=== PATIENT | male | born 1945 ===

== ENCOUNTER 2023-07-16 07:10 | Emergency (ER) | payer OTHER, MEDICARE ==
[~2023-07-16] VITALS: Ht 193 cm; Wt 127.0 kg
[~2023-07-16 07:10] MED LIST: ESOM20 PO; FINA5 PO; FURO20 PO; GLUC500 PO; METO50ER PO; MULVITMIND PO; Micro-K10 MEQ; SILD50TA PO; SUMA25 SL; TRAM50; XARELTO20 MG PO; ZOLP5 PO
[2023-07-16 08:02] LABS: BASOPHILS ABSOLUTE AUTO 0.04 K/mm3 (0.00-0.23); BASOPHILS PERCENT AUTO 1 % (0-2); EOSINOPHILS ABSOLUTE AUTO 0.17 K/mm3 (0.00-0.68); EOSINOPHILS PERCENT AUTO 2 % (0-6); Hematocrit 37.2 % (37.0-53.0); Hemoglobin 12.6 g/dL (13.5-17.5); IMMATURE GRAN ABSOLUTE AUTO 0.03 K/mm3 (0.00-0.10); IMMATURE GRAN PERCENT AUTO 0 % (0-1); LYMPHOCYTES ABSOLUTE AUTO 1.47 K/mm3 (0.84-5.20); LYMPHOCYTES PERCENT AUTO 18 % (21-46); MONOCYTES ABSOLUTE AUTO 0.46 K/mm3 (0.16-1.47); MONOCYTES PERCENT AUTO 6 % (4-13); Mean Corpuscular HGB 32.1 pg (26.0-34.0); Mean Corpuscular HGB Conc 33.9 g/dL (31.5-36.5); Mean Corpuscular Volume 95 fL (80-100); Mean Platelet Volume 10.1 fL (9.1-12.4); NEUTROPHILS ABSOLUTE AUTO 6.24 K/mm3 (1.96-9.15); NEUTROPHILS PERCENT AUTO 74 % (41-73); Platelet Count 170 K/mm3 (150-400); RDW Coefficient Variation 13.4 % (11.7-14.2); RDW Standard Deviation 46.5 fL (35.1-46.3); Red Blood Cell Count 3.92 M/mm3 (4.30-5.90); White Blood Cell Count 8.41 K/mm3 (4.00-11.30)
[2023-07-16] MEDS ORDERED: Acetaminophen 500 MG Tab PO ONE (08:05)
[2023-07-16 08:31] LABS: Albumin, Blood 3.9 g/dL (3.4-5.0); Albumin/Globulin Ratio 1.1 (0.8-1.8); Bilirubin, Total 1.6 mg/dL (0.1-1.0); Calcium, Blood 9.2 mg/dL (8.5-10.1); Globulin, Blood 3.6 g/dL (2.2-4.0); Total Protein, Blood 7.5 g/dL (6.4-8.2)
[2023-07-16] MEDS ORDERED: Ondansetron HCl 2 MG / ML 2ML Vial IV ONE (09:05)
[2023-07-16] MEDS ORDERED: LIDO700A20 TOP (10:12)
[2023-07-16 10:30] VITALS: BP 140/92
== END 2023-07-16 11:02 | disposition home or self-care (01) ==
LOC: ER 07:10
PROVIDERS: Emergency Medicine
DX: S09.90XA Unspecified injury of head, initial encounter (principal); S30.0XXA Contusion of lower back and pelvis, initial encounter; J34.89 Other specified disorders of nose and nasal sinuses; W01.10XA Fall on same level from slipping, tripping and stumbling with subsequent striking against unspecified object, initial encounter; I48.91 Unspecified atrial fibrillation; I11.0 Hypertensive heart disease with heart failure; I50.9 Heart failure, unspecified
CPT/HCPCS: 70450; 72100; 80053; 85025; 93005; 93010; 96374; 99284-25; A9270; J2405

== ENCOUNTER → 2023-08-26 | Outpatient (CLI) | payer MEDICARE, OTHER ==
[~2023-08-26] MED LIST changes: +LIDO700A20 TOP
[2023-08-26 20:04] LABS: Thyroid Stimulating Hormone 1.44 uIU/mL (0.360-4.800)
== END ==
LOC: LAB SHORT 15:29 → LAB 15:29
PROVIDERS: Internal Medicine
DX: I10 Essential (primary) hypertension (principal); E03.9 Hypothyroidism, unspecified; E73.9 Lactose intolerance, unspecified; E53.8 Deficiency of other specified B group vitamins; R73.9 Hyperglycemia, unspecified
CPT/HCPCS: 82607; 82746; 84443

== ENCOUNTER 2024-01-21 13:27 | Emergency (ER) | payer MEDICARE, OTHER ==
[~2024-01-21] VITALS: Ht 193 cm; Wt 99.8 kg
[2024-01-21 14:31] LABS: BASOPHILS ABSOLUTE AUTO 0.04 K/mm3 (0.00-0.23); BASOPHILS PERCENT AUTO 1 % (0-2); EOSINOPHILS ABSOLUTE AUTO 0.18 K/mm3 (0.00-0.68); EOSINOPHILS PERCENT AUTO 3 % (0-6); Hemoglobin 11.3 g/dL (13.5-17.5); IMMATURE GRAN ABSOLUTE AUTO 0.03 K/mm3 (0.00-0.10); IMMATURE GRAN PERCENT AUTO 1 % (0-1); LYMPHOCYTES ABSOLUTE AUTO 1.49 K/mm3 (0.84-5.20); LYMPHOCYTES PERCENT AUTO 24 % (21-46); MONOCYTES ABSOLUTE AUTO 0.45 K/mm3 (0.16-1.47); MONOCYTES PERCENT AUTO 7 % (4-13); Mean Corpuscular HGB 33.5 pg (26.0-34.0); Mean Corpuscular HGB Conc 33.2 g/dL (31.5-36.5); Mean Corpuscular Volume 101 fL (80-100); Mean Platelet Volume 10.8 fL (9.1-12.4); NEUTROPHILS ABSOLUTE AUTO 4.07 K/mm3 (1.96-9.15); NEUTROPHILS PERCENT AUTO 65 % (41-73); Platelet Count 135 K/mm3 (150-400); RDW Coefficient Variation 13.5 % (11.7-14.2); RDW Standard Deviation 49.9 fL (35.1-46.3); Red Blood Cell Count 3.37 M/mm3 (4.30-5.90); White Blood Cell Count 6.26 K/mm3 (4.00-11.30)
[2024-01-21 14:44] LABS: Albumin, Blood 3.6 g/dL (3.4-5.0); Bilirubin, Total 0.9 mg/dL (0.1-1.0); Bun/Creatinine Ratio 31.1 (12.0-20.0); Calcium, Blood 8.8 mg/dL (8.5-10.1); Creatinine, Blood 0.96 mg/dL (0.60-1.20); Globulin, Blood 3.5 g/dL (2.2-4.0); Potassium, Blood 4.7 mmol/L (3.5-5.5); Total Protein, Blood 7.1 g/dL (6.4-8.2)
[2024-01-21 15:00] VITALS: BP 117/82
== END 2024-01-21 15:31 | disposition home or self-care (01) ==
LOC: ER 13:27
PROVIDERS: Emergency Medicine
DX: R55 Syncope and collapse (principal); I11.0 Hypertensive heart disease with heart failure; I50.9 Heart failure, unspecified; I48.91 Unspecified atrial fibrillation; Z79.01 Long term (current) use of anticoagulants; Z79.899 Other long term (current) drug therapy
CPT/HCPCS: 70450; 80053; 85025; 93005; 93010; 99285-25

== ENCOUNTER 2024-02-26 13:19 | Emergency (ER) | payer OTHER, MEDICARE ==
[~2024-02-26] VITALS: Ht 190.5 cm; Wt 98.4 kg
[2024-02-26 13:33] VITALS: BP 120/70
[2024-02-26 14:38] LABS: Source, Urine Clean Catch
[2024-02-26 14:43] LABS: Appearance, Urine Clear (Clear); Bilirubin, Urine Neg (Neg); Blood, Urine Neg (Neg); Color, Urine Yellow (P-Yellow); Glucose Qualitative, Urine Neg (Neg); Ketones, Urine Neg (Neg); Leukocyte Esterase, Urine Neg (Neg); Nitrite, Urine Neg (Neg); Protein, Urine Neg (Neg); Specific Gravity, Urine 1.015 (1.003-1.022); Urobilinogen, Urine NORM (Normal)
[2024-02-26] MEDS ORDERED: Diphth,Pertuss(Acell),Tet Vac 0.5 ML VIAL IM ONE (15:35)
[2024-02-26 15:49] LABS: BASOPHILS ABSOLUTE AUTO 0.03 K/mm3 (0.00-0.23); BASOPHILS PERCENT AUTO 1 % (0-2); EOSINOPHILS ABSOLUTE AUTO 0.25 K/mm3 (0.00-0.68); EOSINOPHILS PERCENT AUTO 4 % (0-6); Hematocrit 36.6 % (37.0-53.0); Hemoglobin 12.3 g/dL (13.5-17.5); IMMATURE GRAN ABSOLUTE AUTO 0.02 K/mm3 (0.00-0.10); IMMATURE GRAN PERCENT AUTO 0 % (0-1); LYMPHOCYTES ABSOLUTE AUTO 2.27 K/mm3 (0.84-5.20); LYMPHOCYTES PERCENT AUTO 37 % (21-46); MONOCYTES PERCENT AUTO 10 % (4-13); Mean Corpuscular HGB 32.8 pg (26.0-34.0); Mean Corpuscular HGB Conc 33.6 g/dL (31.5-36.5); Mean Corpuscular Volume 98 fL (80-100); Mean Platelet Volume 10.2 fL (9.1-12.4); NEUTROPHILS ABSOLUTE AUTO 3.01 K/mm3 (1.96-9.15); NEUTROPHILS PERCENT AUTO 49 % (41-73); Platelet Count 175 K/mm3 (150-400); RDW Coefficient Variation 13.4 % (11.7-14.2); RDW Standard Deviation 48.1 fL (35.1-46.3); Red Blood Cell Count 3.75 M/mm3 (4.30-5.90); White Blood Cell Count 6.18 K/mm3 (4.00-11.30)
[2024-02-26 16:12] LABS: Albumin, Blood 3.9 g/dL (3.4-5.0); Albumin/Globulin Ratio 0.9 (0.8-1.8); Bilirubin, Total 0.7 mg/dL (0.1-1.0); Bun/Creatinine Ratio 29.2 (12.0-20.0); Calcium, Blood 9.5 mg/dL (8.5-10.1); Creatinine, Blood 0.86 mg/dL (0.60-1.20); Globulin, Blood 4.2 g/dL (2.2-4.0); Potassium, Blood 4.4 mmol/L (3.5-5.5); Total Protein, Blood 8.1 g/dL (6.4-8.2)
== END 2024-02-26 17:31 | disposition home or self-care (01) ==
LOC: ER 13:19
PROVIDERS: Physician Assistant
DX: S63.283A Dislocation of proximal interphalangeal joint of left middle finger, initial encounter (principal); S00.81XA Abrasion of other part of head, initial encounter; I11.0 Hypertensive heart disease with heart failure; I50.9 Heart failure, unspecified; I48.91 Unspecified atrial fibrillation; W01.0XXA Fall on same level from slipping, tripping and stumbling without subsequent striking against object, initial encounter; Z79.899 Other long term (current) drug therapy
CPT/HCPCS: 26770; 70450; 73130; 73140; 80053; 81003; 85025; 90471; 90715; 99284-25

== ENCOUNTER 2024-07-11 16:13 | Inpatient (IN) | payer MEDICARE, OTHER ==
[~2024-07-11] VITALS: Ht 190.5 cm; Wt 86.2 kg
[2024-07-11 16:55] LABS: BASOPHILS ABSOLUTE AUTO 0.03 K/mm3 (0.00-0.23); BASOPHILS PERCENT AUTO 1 % (0-2); EOSINOPHILS ABSOLUTE AUTO 0.22 K/mm3 (0.00-0.68); EOSINOPHILS PERCENT AUTO 5 % (0-6); Hematocrit 35.7 % (37.0-53.0); IMMATURE GRAN ABSOLUTE AUTO 0.01 K/mm3 (0.00-0.10); IMMATURE GRAN PERCENT AUTO 0 % (0-1); LYMPHOCYTES ABSOLUTE AUTO 1.91 K/mm3 (0.84-5.20); LYMPHOCYTES PERCENT AUTO 40 % (21-46); MONOCYTES ABSOLUTE AUTO 0.44 K/mm3 (0.16-1.47); MONOCYTES PERCENT AUTO 9 % (4-13); Mean Corpuscular HGB 33.1 pg (26.0-34.0); Mean Corpuscular HGB Conc 33.6 g/dL (31.5-36.5); Mean Corpuscular Volume 99 fL (80-100); Mean Platelet Volume 10.3 fL (9.1-12.4); NEUTROPHILS ABSOLUTE AUTO 2.14 K/mm3 (1.96-9.15); NEUTROPHILS PERCENT AUTO 45 % (41-73); Platelet Count 151 K/mm3 (150-400); RDW Coefficient Variation 13.3 % (11.7-14.2); RDW Standard Deviation 48.3 fL (35.1-46.3); Red Blood Cell Count 3.62 M/mm3 (4.30-5.90); White Blood Cell Count 4.75 K/mm3 (4.00-11.30)
[2024-07-11 17:35] LABS: Albumin, Blood 3.7 g/dL (3.4-5.0); Bilirubin, Total 0.8 mg/dL (0.1-1.0); Bun/Creatinine Ratio 27.2 (12.0-20.0); Calcium, Blood 9.2 mg/dL (8.5-10.1); Creatinine, Blood 1.03 mg/dL (0.60-1.20); Globulin, Blood 3.7 g/dL (2.2-4.0); Magnesium, Blood 2.3 mg/dL (1.6-2.4); Potassium, Blood 4.5 mmol/L (3.5-5.5); Total Protein, Blood 7.4 g/dL (6.4-8.2)
[2024-07-11 18:39] LABS: CORONAVIRUS COVID-19 AG Negative (NEGATIVE); INFLUENZA A AG Negative (NEGATIVE); INFLUENZA B AG Negative (NEGATIVE)
[2024-07-11 19:24] LABS: Source, Urine Clean Catch
[2024-07-11 19:29] LABS: Appearance, Urine Clear (Clear); Bilirubin, Urine Neg (Neg); Blood, Urine Neg (Neg); Color, Urine Yellow (P-Yellow); Glucose Qualitative, Urine Neg (Neg); Ketones, Urine Neg (Neg); Leukocyte Esterase, Urine Neg (Neg); Nitrite, Urine Neg (Neg); Protein, Urine Neg (Neg); Specific Gravity, Urine 1.015 (1.003-1.022); Urobilinogen, Urine 2+ (Normal)
[2024-07-11] MEDS ORDERED: FUROSEMIDE20 MG PO (19:53)
[2024-07-11] MEDS ORDERED: FLUO.1OPSU BOTHEYES (19:53)
[2024-07-11] MEDS ORDERED: BUPR150ER PO (19:54)
[2024-07-11] MEDS ORDERED: CELEXA10 MG PO (19:54)
[2024-07-11] MEDS ORDERED: KLOR-CON 1010 ME9 PO (19:54)
[2024-07-11] MEDS ORDERED: METO50ER PO (19:54)
[2024-07-11] MEDS ORDERED: TADALAFIL5 M1 PO (19:55)
[2024-07-11] MEDS ORDERED: XARELTO20 M1 PO (19:55)
[2024-07-11] MEDS ORDERED: Ondansetron 4 MG TAB PO PRN (20:40)
[2024-07-11] MEDS ORDERED: FLU VACC TS2024-25(6MOS UP)/PF 45 MCG/0.5 ML SYRINGE IM ONE (20:40)
[2024-07-11] MEDS ORDERED: Zolpidem Tartrate 5 MG Tab PO PRN (21:00)
[2024-07-11] MEDS ORDERED: NS 1,000 ML IV SCH (21:00)
[2024-07-11 21:05] LABS: Thyroid Stimulating Hormone 1.14 uIU/mL (0.360-4.800)
[2024-07-11 22:11] VITALS: BP 156/98
[2024-07-11] MEDS ORDERED: OLANZapine 10 MG Vial IM ONE (23:50)
--- NOTE | 2024-07-12 00:49 | NUR ---
TRANSFER NOTE: PT AOX1 ARROIVED FROM ER. PT IS VERY PLEASANTLY CONFUSED, SPEAKING RANDOM SENTENCES, NOT ANSWERINT APPROPRIATELY AND IS NOT REDIRECTABLE. PT WAS REGULARLY ATTEMPTING TO GET OUT OF BED. WAS NOT REDIRECTABLE. PROVIDER NOTIFIED, ARIAN VEST AND IM ZYPREXA ORDERED AND ADMINISTERED. CLINICAL SITTER ALSO AT BEDSIDE. PT CALM AND RESTING. CONTINUING CARE.
[2024-07-12 04:47] LABS: BASOPHILS ABSOLUTE AUTO 0.03 K/mm3 (0.00-0.23); BASOPHILS PERCENT AUTO 1 % (0-2); EOSINOPHILS ABSOLUTE AUTO 0.15 K/mm3 (0.00-0.68); EOSINOPHILS PERCENT AUTO 3 % (0-6); Hematocrit 34.4 % (37.0-53.0); Hemoglobin 11.7 g/dL (13.5-17.5); IMMATURE GRAN ABSOLUTE AUTO 0.01 K/mm3 (0.00-0.10); IMMATURE GRAN PERCENT AUTO 0 % (0-1); LYMPHOCYTES ABSOLUTE AUTO 1.91 K/mm3 (0.84-5.20); LYMPHOCYTES PERCENT AUTO 32 % (21-46); MONOCYTES ABSOLUTE AUTO 0.48 K/mm3 (0.16-1.47); MONOCYTES PERCENT AUTO 8 % (4-13); Mean Corpuscular HGB 33.3 pg (26.0-34.0); Mean Corpuscular Volume 98 fL (80-100); Mean Platelet Volume 9.9 fL (9.1-12.4); NEUTROPHILS ABSOLUTE AUTO 3.42 K/mm3 (1.96-9.15); NEUTROPHILS PERCENT AUTO 57 % (41-73); Platelet Count 142 K/mm3 (150-400); RDW Coefficient Variation 13.1 % (11.7-14.2); RDW Standard Deviation 46.8 fL (35.1-46.3); Red Blood Cell Count 3.51 M/mm3 (4.30-5.90)
[2024-07-12 05:11] LABS: Albumin, Blood 3.4 g/dL (3.4-5.0); Albumin/Globulin Ratio 0.9 (0.8-1.8); Bun/Creatinine Ratio 27.5 (12.0-20.0); Calcium, Blood 8.6 mg/dL (8.5-10.1); Creatinine, Blood 0.8 mg/dL (0.60-1.20); Globulin, Blood 3.7 g/dL (2.2-4.0); Potassium, Blood 3.6 mmol/L (3.5-5.5); Total Protein, Blood 7.1 g/dL (6.4-8.2)
--- NOTE | 2024-07-12 05:56 | NUR ---
SHIFT SUMMARY: PT AOX1 WITH CONFUSION AND FORGETFULNESS. PLEASANTLY CONFUSED, BUT NON-REDIRECTABLE. GETS AGITATED AND THEN WILL CALM DOWN. WAS UNABLE TO TRANSFER FROM [facility] WHEN BROUGHT FROM ED. PT COULD SWING LEGS OUT BUT NOT STAND ON HIS FEET. PT WAS THEN SLID INTO NEW BED FROM [facility]. PT ROUTINELY TRIES TO GET OUT OF BED AND AMBULATE DESPITE BEING UNDSTEADY AND NOT ABLE TO BE REDIRECTED. CONTINUES TO NOT SPEAK COHERENTLY OR MAKE NEEDS KNOWN. PT TRIED TO GET OUT OF BED NON STOP, PROVIDER NOTIFIED AND PT PLACED IN ARIAN VEST AND IM ZYPREXA GIVEN. 1TO1 SITTER AT BEDSIDE AND PT STILL ROUTINELY TRIES TO GET UP AND IS NOT REDIRECTABLE. PT AGITATED AT SOME TIMES AND PLEASANT AT OTHERS. CHARGE NURSE AND PROVIDER AWARE. PT VITALS ARE STABLE AND TOLERATING MEDICATIONS WELL. NO OTHER ACUTE EVENTS OVERNIGHT. CONTINUING CARE.
[2024-07-12 05:58] VITALS: BP 134/96
[2024-07-12] MEDS ORDERED: OLANZapine 10 MG Vial IM ONE (06:50)
[2024-07-12 08:18] VITALS: BP 155/102
[2024-07-12] MEDS ORDERED: Metoprolol Succinate 50 MG TABCR PO SCH (09:00)
[2024-07-12] MEDS ORDERED: buPROPion HCL 150 MG TAB.SR.12H PO SCH (09:00)
[2024-07-12] MEDS ORDERED: Citalopram Hydrobromide 10 MG TAB PO SCH (09:00)
[2024-07-12] MEDS ORDERED: Enoxaparin 40 MG/0.4 ML SYR SC SCH (09:00)
[2024-07-12] MEDS ORDERED: tadalafiL 5 MG Tab PO SCH (09:00)
[2024-07-12] MEDS ORDERED: Rivaroxaban 10 MG Tab PO SCH (09:00)
[2024-07-12] MEDS ORDERED: Potassium Chloride 10 Meq Tablet SA PO SCH (09:00)
[2024-07-12] MEDS ORDERED: Furosemide 20 MG Tab PO SCH (09:00)
[2024-07-12] MEDS ORDERED: Misc. Opth BOTHEYES SCH (09:00)
[2024-07-12] MEDS ORDERED: TraMADol HCl 50 MG Tab PO SCH (09:00)
[2024-07-12] MEDS ORDERED: OLANZapine 10 MG Vial IM PRN (09:45)
--- NOTE | 2024-07-12 12:32 | NUR ---
1227- VERBAL FROM [facility] TO SHANNON DON. 1231- VERBAL FROM [facility] TO PLACE BILAT WRIST RESTRAINTS.
--- NOTE | 2024-07-12 12:32 | NUR ---
1230- VERBAL FROM EWELINA TO SHANNON TELE.
[2024-07-12] MEDS ORDERED: Haloperidol Lactate Inj. 5 MG/ML Injection IM PRN (13:10)
[2024-07-12 16:31] VITALS: BP 192/97
--- NOTE | 2024-07-12 17:55 | NUR ---
SUMMARY- AAOX0. BEDREST. ON RA. PT DID NOT WANT ANY FOOD OR WATER THIS SHIFT. PT DID HAVE A FEW SMALL BITES OF PUDDING WITH HIS MEDS. PT TOOK A COUPLE OF HIS PO MEDS AND REFUSED THE REST. PT WAS ANXIOUS AND ANGRY MOST OF THE SHIFT TRYING TO PULL AT ALL LINES, HIT STAFF, AND CLIMB OOB. ZYPREXA AND HALDOL WORKED MINIMALLY TO HELP CONTROL THE PT'S UNSAFE BEHAVIORS. PT IS UNABLE TO ANSWER ANY QUESTIONS. PT WAS STRAIGHT CATHED X2 AND THEN A FRENCH WAS PLACED AT 1720. NO COMPLAINTS OF PAIN.
[2024-07-12 18:36] VITALS: BP 156/76
[2024-07-12] MEDS ORDERED: Labetalol HCL 5 MG/ML 4ML Injection (Single Dose) IV PRN (18:50)
[2024-07-12 20:59] VITALS: BP 135/98
[2024-07-13 04:53] LABS: Calcium, Blood 9.4 mg/dL (8.5-10.1); Potassium, Blood 3.6 mmol/L (3.5-5.5)
--- NOTE | 2024-07-13 05:05 | NUR ---
SHIFT SUMMARY: PT AOX0 UNABLE TO ANSWER QUESTIONS AND AROUSABLE WITH PAIN OR VERBAL STIMULI, BUT UNABLE TO ANSWER APPROPRIATELY. PT IN SOFT RESTRAINTS WITH CLINICAL SITTER AT BEDSIDE. PT CONTINUES TO ATTEMPT TO GET OUT OF BED DESPITE ATTEMPTS TO REDIRECT. HAS BEEN INCREASINGLY MORE AGITATED AND ATTEMPTING TO HIT STAFF DURING CARE. IM HALDOL GIVEN PER EMR. PT OCCASIONALLY THRASHES TO FIGHT THE RESTRAINTS AND THEN CONTINUES TO HAVE SMALL TWITCHES AND WHISPERING IN WHAT APPEARS TO BE SLEEP. PT STILL REGULARLY ATTEMPTING TO REMOVE SELF FROM BED. PT HAS FOLLOW WITH [facility]. PT IN BED, BED IN LOWEST POSITION, BED ALARM ON. CONTINUING CARE.
[2024-07-13 07:30] VITALS: BP 122/79
[2024-07-13] MEDS ORDERED: D5W-LR 1,000 ML IV SCH (08:00)
--- NOTE | 2024-07-13 09:52 | NUR ---
0945- THIS RN SPOKE WITH ENA RICHARDSON. DYLAN WISHES TO HAVE BERNARDINO A DNR AND WOULD ALSO LIKE COMFORT CARE MEASURES. RN TO NOTIFY DR. THEODORE.
[2024-07-13] MEDS ORDERED: Acetaminophen 650 MG Supp PR PRN (10:50)
[2024-07-13] MEDS ORDERED: Morphine Sulfate 20 MG/1ML 1 ML Oral Syringe SL PRN (10:50)
[2024-07-13] MEDS ORDERED: LORazepam 2 MG/ML 1ML Injection IV PRN ×2 (10:50→11:40)
[2024-07-13] MEDS ORDERED: Atropine Sulfate 1% Opth Soln 2ML BTL SL PRN ×2 (10:50→11:35)
[2024-07-13] MEDS ORDERED: LORazepam 1 MG Tab PO PRN (10:50)
[2024-07-13] MEDS ORDERED: Scopolamine Hydrobromide Patch TOP PRN ×2 (10:50→11:40)
[2024-07-13] MEDS ORDERED: Morphine Sulfate 10 MG/ML 1MLSYR IV PRN ×2 (10:55→11:40)
[2024-07-13] MEDS ORDERED: FentaNYL 25 MCG Patch TOP SCH ×2 (10:55→11:40)
--- NOTE | 2024-07-13 11:03 | NUR ---
Given the patient's anxiety, non-verbal indications of pain, and refusal to take anything PO, the current plan is to utilize a transdermal fentanyl patch and IV pain and anxiety medications, until he is hopefully able to take PO medications. Plan: Place Fentanyl Patch now, and give IV pain medication as needed to give time for fentanyl efficacy. If patient calms, will change to po comfort medications. Spoke with pt's jeannette Forrester who is pt's POA. She requests pt be made DNR and comfort care. She states she'll be flying out in the next 24 hours to see patient. She states he never had children of his own, and she agreed to be his "person" at the end of his life.
--- NOTE | 2024-07-13 11:29 | NUR ---
Spoke with Dr. Vivar, she requests resident physician place comfort orders. Bedside RN aware.
[2024-07-13] MEDS ORDERED: Haloperidol Lactate Inj. 5 MG/ML Injection IV PRN (11:40)
--- NOTE | 2024-07-13 18:45 | NUR ---
SUMMARY- PT AAOX0. ON RA. PT'S RESTRAINTS REMOVED AT 1149 THIS SHIFT. IV MORPHINE IS CONTROLLING PT'S PAIN WELL AND IV ATIVAN IS CONTROLLING PT'S ANXIETY WELL. SITTER REMOVED FROM NOC SHIFT. PT'S "" CAME TO VISIT PT THIS SHIFT. BEDREST. PT IS MUCH MORE CALM AFTER BECOMMING COMFORT CARE AND INITIATION OF COMFORT MEDS.
--- NOTE | 2024-07-14 11:35 | NUR ---
Spiritual care visit conducted. Patient is lying in bed and minimally responsive. Family (ex-spouse, niece and caregiver) are bedside and tearful. I counducted a life review, access the family spiritual needs and then provided gentle encouragement, and prayer. I also called Father Saurabh upon their request. He stated that he would visit the patient between 1-1:30 today to provide ther Anointing of the Sick. The family voice their appreciation for the prayer and for setting up a time for a holistic specialist to visit. I will continue to remain available to the patient and family.
[2024-07-14] MEDS ORDERED: FentaNYL 12 MCG/HR Patch TOP SCH (12:45)
[2024-07-14] MEDS ORDERED: LORazepam Conc 2 MG/ML - 1ML UDC PO PRN (12:45)
[2024-07-14] MEDS ORDERED: Morphine Sulfate 20 MG/1ML 1 ML Oral Syringe PO PRN (12:45)
--- NOTE | 2024-07-14 18:41 | NUR ---
SUMMARY- AAOX0. BEDREST. LIQUID ATIVAN HAS HELPED CONTROL PT'S ANXIETY/ANGER THIS SHIFT WELL. ROXANOL HAS HELPED CONTROL PT'S PAIN WELL THIS SHIFT. PERIODS OF APNEA UP TO 15 SECS THIS SHIFT. ATROPINE STARTED THIS SHIFT-WORKING WELL.
--- NOTE | 2024-07-15 07:12 | NUR ---
SHIFT SUMMARY PT EXPERIENCING LABORED BREATHING WITH ACCESSORY MUSCLE USE. PT SUCTIONED AND ORAL CARE PERFORMED. PT NIECE AT BEDSIDE. PROVIDING ATROPINE, ATIVAN, AND ROXANOL PER EMAR FOR COMFORT. THIS RN SAT WITH PT AND NIECE TO PROVIDE COMFORT. PT CONTINUES TO HAVE LABORED BREATHING. NIECE REMAINED AT BEDSIDE THROUGH NIGHT. THIS RN REMOVED LARGE CHUNK OF DRIED MUCUS FROM ROOF OF PT S MOUTH. MEDICATION REGIMEN RESUMED, PT RESTING COMFORTABLY. RELAY TO DAY SHIFT.
--- NOTE | 2024-07-15 10:03 | NUR ---
PT'S CLOTILDE CAME OUT OF ROOM IMMEDIATELY AFTER THIS RESIDENT HALL DIRECTOR TOOK OVER CARE. PT'S TOD WAS 0720 BOTH KRISTIAN KASPER AND I PRONOUNCED TOGETHER. PT WAS CLEANED UP AND THEN TRANSPORTED OUT VIA HOME. ALL PERSONAL BELONGING COLLECTED BY CLOTILDE.
== END 2024-07-15 07:20 | DRG 884 ==
LOC: ER 16:13 → MEDS 16:14
PROVIDERS: Student in an Organized Health Care Education/Training Program; ADMIT Internal Medicine
PROC: 0T9B70Z Drainage of Bladder with Drainage Device, Via Natural or Artificial Opening (ICD-10-PCS; principal; 2024-07-13)
DX: F03.C11 Unspecified dementia, severe, with agitation (principal); I48.20 Chronic atrial fibrillation, unspecified; I11.0 Hypertensive heart disease with heart failure; I50.9 Heart failure, unspecified; Z78.1 Physical restraint status; Z66 Do not resuscitate; Z51.5 Encounter for palliative care; R33.9 Retention of urine, unspecified; E87.8 Other disorders of electrolyte and fluid balance, not elsewhere classified; F03.C4 Unspecified dementia, severe, with anxiety; Z28.21 Immunization not carried out because of patient refusal; Z79.01 Long term (current) use of anticoagulants; Z98.890 Other specified postprocedural states; D64.9 Anemia, unspecified; R79.89 Other specified abnormal findings of blood chemistry
CPT/HCPCS: 36415; 51701; 71045; 80048; 80053; 81003; 82607; 83735; 84443; 84484; 85025; 87428-QW; 93005; 93010; 96360; 96361; 96372; 99285-25; A9270; G0378; J1630; J2060; J2270; J7030; J7121